=== PATIENT | female | born 1965 | race African-American/Black ===

== ENCOUNTER 2021-01-23 10:03 | Outpatient (CLI) | payer OTHER | END 2021-01-23 20:05 | disposition home or self-care (01) | LOC: MAMMO 10:03 | PROVIDERS: ATTEND Family Medicine | DX: Z12.31 Encounter for screening mammogram for malignant neoplasm of breast (principal) ==

== ENCOUNTER 2022-02-07 09:09 | Outpatient (CLI) | payer OTHER | END 2022-02-07 20:39 | disposition home or self-care (01) | LOC: MAMMO 09:09 | PROVIDERS: ATTEND Family Medicine | DX: G89.4 Chronic pain syndrome (principal); Z12.31 Encounter for screening mammogram for malignant neoplasm of breast ==